=== PATIENT | male | born 1960 | race Caucasian/White ===

== ENCOUNTER 2023-10-18 23:37 | Emergency (ER) | payer MEDICARE, OTHER ==
[~2023-10-18] VITALS: Ht 154.9 cm; Wt 66.0 kg
[2023-10-18 23:45] VITALS: BP 125/92; PULSE 81; RESP 18; TEMP 98.2; O2SAT 99
[2023-10-19] MEDS: LIDOCAINE HCL/PF 1% 10 MG/ML 5ML VIAL INFIL ONE (00:15)
[2023-10-19] MEDS: BACITRACIN ZINC OINT UDPKT TOP ONE (00:15)
[2023-10-19] MEDS: TETANUS, DIPHTHERIA, PERTUSSIS VAC/PF 0.5ML (>10YR OLD) IM ONE (00:15)
[2023-10-19] MEDS ORDERED: LIDOCAINE HCL/PF 1% 10 MG/ML 5ML VIAL INFIL NR (00:30)
[2023-10-19] MEDS ORDERED: DOXY100C5 MT (01:46)
== END 2023-10-19 02:45 | disposition home or self-care (01) ==
LOC: ER 23:37
DX: S61.011A Laceration without foreign body of right thumb without damage to nail, initial encounter (principal); X58.XXXA Exposure to other specified factors, initial encounter; Y93.89 Activity, other specified; Y92.89 Other specified places as the place of occurrence of the external cause; Y99.8 Other external cause status
CPT/HCPCS: 99283; 90715; 90471; J3490